=== PATIENT | female | born 1965 | race Caucasian/White ===

== ENCOUNTER → 2021-06-15 13:21 | Outpatient (BNVA) | payer MEDICARE, MEDICAID, SELFPAY | PROVIDERS: PCP Nurse Practitioner Family; Visit Provider Anesthesiology | DX: M96.1 Postlaminectomy syndrome, not elsewhere classified (principal); M51.36 Other intervertebral disc degeneration, lumbar region; G89.4 Chronic pain syndrome; Q76.49 Other congenital malformations of spine, not associated with scoliosis | CPT/HCPCS: 99202 ==

== ENCOUNTER → 2021-12-21 08:22 | Outpatient (BNVA) | payer MEDICARE, MEDICAID, SELFPAY | PROVIDERS: PCP Nurse Practitioner Family; Visit Provider Nurse Practitioner Family | DX: G89.4 Chronic pain syndrome (principal); M96.1 Postlaminectomy syndrome, not elsewhere classified; M51.36 Other intervertebral disc degeneration, lumbar region; M62.830 Muscle spasm of back | CPT/HCPCS: 99212 ==

== ENCOUNTER 2022-01-19 05:52 | Outpatient (REF) | payer MEDICARE, MEDICAID, SELFPAY ==
--- NOTE | ~2022-01-19 | FL_ITS ---
EXAMINATION: XR FLUOROSCOPY WITH IMAGES CLINICAL INFORMATION: M96.1 - Postlaminectomy syndrome, not elsewhere classified COMPARISON: None. TECHNIQUE: Fluoroscopy performed by Dr. Alcides Cheatham. Fluoroscopy time: under 10 seconds. Cumulative Dose: 1.28 mGy. DAP: 0.349 Gycm2. Images: 2. FINDINGS: The spot views demonstrate rodding lumbar spine with bilateral pedicle screws and rods, left side L2-L4 and right side L2-L5. Disc spaces are seen at L2-L3, L3-L4, and L4-L5. FL/FL guidance in treatment room IMPRESSION: Fluoroscopy for pain management service.
== END 2022-01-19 05:53 | disposition home or self-care (01) ==
LOC: HO.RADIR 05:52
PROVIDERS: Visit Provider Anesthesiology
DX: M96.1 Postlaminectomy syndrome, not elsewhere classified (principal); M51.36 Other intervertebral disc degeneration, lumbar region; Q76.49 Other congenital malformations of spine, not associated with scoliosis; G89.4 Chronic pain syndrome
CPT/HCPCS: J1170; Q3014; Q9967

== ENCOUNTER → 2022-01-25 15:23 | Outpatient (BNVA) | payer MEDICARE, MEDICAID, SELFPAY | PROVIDERS: PCP Nurse Practitioner Family; Visit Provider Anesthesiology | DX: M96.1 Postlaminectomy syndrome, not elsewhere classified (principal); M51.36 Other intervertebral disc degeneration, lumbar region; G89.4 Chronic pain syndrome; Q76.49 Other congenital malformations of spine, not associated with scoliosis | CPT/HCPCS: 99212 ==